=== PATIENT | male | born 1980 | race Caucasian/White ===

== ENCOUNTER 2018-11-04 09:28 | Emergency (ER) | payer SELFPAY ==
[~2018-11-04] VITALS: Ht 175.3 cm; Wt 101.5 kg
[2018-11-04 09:42] VITALS: BP 121/72
--- NOTE | 2018-11-04 10:03 | NUR ---
Pt presents to ED with c/o bilateral wrist pain related to per pt "my carpal tunnel". Pt is AOX4, ambulates with steady gait and balance, no obvious defecits ovserved, no acute distress noticed. Call light within reach. No needs expressed at this time. Pt states pain has been occuring for "2 to 3 days." Pt states he takes Gabapentin 1200 mg TID for the pain.
--- NOTE | 2018-11-04 10:19 | NUR ---
Patient given discharge instructions and they have confirmed that they understand the instructions. Patient ambulatory with steady gait. Pt left with d/c paperwork, prescriptions, and all personal belongings.
== END 2018-11-04 10:21 | disposition home or self-care (01) ==
LOC: ED 10:08
DX: G56.03 Carpal tunnel syndrome, bilateral upper limbs (principal)
CPT/HCPCS: 99283